=== PATIENT | female | born 1955 | race Caucasian/White ===

== ENCOUNTER 2023-01-18 09:16 | Outpatient (AMB) | payer OTHER, SELFPAY ==
--- NOTE | 2023-01-18 10:04 | MHC.OFFWIV ---
Intake Vital Signs 01/18/23 10:08 BP 102/70 Blood Pressure Location Lt brachial Position Sitting Pulse 65 Pulse Source Pulse Oximeter Temp 98.2 F Temp Source Oral Pulse Oximetry (%) 97 Oxygen Delivery Method Room Air Intake Visit Reasons: EST/right hip pain (lobby) Intake Note: Pt is c/o of right hip pain since August. States her chiropractor requested an xray Allergies No Known Allergies Allergy (Verified 01/18/23 10:07) HPI EST/right hip pain (lobby) HPI Details Patient is a 68-year-old female comes to the walk-in clinic complaining of chronic low back and right hip area pain for about half a year. She sees a chiropractor, who requested that she obtain an x-ray of the hip. She has had no acute fall or chronic injury, and has no acute weakness, numbness or tingling distally of the right extremity. Reviewed past medical history Review of Systems Const All systems reviewed & are unremarkable except as noted in HPI and below Physical Exam Vital Signs: Last Vital Signs Temp 98.2 F 01/18/23 10:08 Pulse 65 01/18/23 10:08 BP 102/70 01/18/23 10:08 Pulse Ox 97 01/18/23 10:08 Oxygen Delivery Method Room Air 01/18/23 10:08 Const General: cooperative, healthy appearing, comfortable, no acute distress, alert, awake, Physically active and well groomed; No anxious, diaphoretic, ill appearing, intoxicated appearing, poor hygiene or tired appearing Nutritional Appearance: average body habitus Limitations: no limitations Resp Effort & Inspection: normal respiratory effort Cardio Rate: regular rate Back/Spine/Pelvis Thoracic/Lumbar Spine: No paraspinal muscle tenderness, thoraco-lumbar ROM limited, No thoracic spinal tenderness and No lumbar spinal tenderness Pelvis: pain with anterior-posterior compression, no buttock swelling and no unilateral elevation of iliac crest Sacrum: no erythema, no swelling and tenderness Skin Other: Good color, warm and dry Psych Appearance: grossly normal Mental Status: mental status grossly normal Speech and movement: Normal speech and movement present Affect: normal affect Attitude: cooperative Thought process: Normal thought process present Insight: Good insight present (Psych) Judgement: Good judgement present (Psych) Assessment & Plan Assessment & Plan (1) Hip pain: Code(s): M25.559 - Pain in unspecified hip Qualifiers: Laterality: right Qualified Code(s): M25.551 - Pain in right hip Plan: Patient is a 68-year-old female with history of chronic back pain that requests right hip x-ray per her chiropractor recommendation. The film looks normal on my wet read, and we discussed that she might need further imaging if it is in fact the hip that is the cause of her symptoms. She also has pain coming from the right pelvic area, which we discussed. She will follow up with chiropractor as planned, and she can follow up with PCP for further recommendations as needed. Orders: Orders XR hip RT w PEL1V 01/18/23 M25.559 - Pain in unspecified hip Coding Level of Care Code Est Pt Level 3 (07607) Diagnoses Pain of right hip M25.551 Laterality: right
[2023-01-18 10:08] VITALS: BP 102/70; PULSE 65; TEMP 36.8; O2SAT 97
== END 2023-01-18 11:24 | disposition home or self-care (01) ==
PROVIDERS: PCP Internal Medicine; Visit Provider Physician Assistant Medical
DX: M25.551 Pain in right hip (principal)
CPT/HCPCS: 99213

== ENCOUNTER 2023-01-18 10:46 | Outpatient (REF) | payer MEDICARE, SELFPAY ==
--- NOTE | ~2023-01-18 | XR_ITS ---
EXAMINATION: XR HIP, RIGHT CLINICAL INFORMATION: Right hip pain COMPARISON: None available. TECHNIQUE: Single view pelvis with one additional view of the right hip. FINDINGS: No fracture. Alignment is anatomic. Hip joint space is maintained. Soft tissues are unremarkable. XR/XR hip RT w PEL1V IMPRESSION: Normal right hip.
== END 2023-01-18 10:47 | disposition home or self-care (01) ==
LOC: HO.HMGCX 10:46
PROVIDERS: PCP Internal Medicine; Visit Provider Physician Assistant Medical
DX: M25.551 Pain in right hip (principal)
CPT/HCPCS: 73502